=== PATIENT | female | born 1930 | race Caucasian/White ===

== ENCOUNTER → 2016-12-19 | Outpatient (CLI) | payer MEDICARE, OTHER ==
[~2016-12-19] MED LIST: CPR500T PO; HCT25T PO; LISI40TA PO; MULT-963 PO; NF-CIT200 PO
--- NOTE | 2016-12-19 14:40 | Diagnostic Imaging Report ---
EXAMINATION: Three views of the lumbar spine performed. INDICATION: Right lower extremity radiculopathy. FINDINGS: There is osteopenia. There is right convexity scoliosis centered around L3 level. The vertebral body heights appear to be preserved although evaluation is somewhat limited due to the scoliosis. There is suggestion of a grade 1 retrolisthesis of L1 over L2. There is significant disc height loss and vacuum phenomenon seen at multiple lumbar spine levels. No significant posterior osteophyte formation is appreciated. The SI joints demonstrate significant degenerative changes. IMPRESSION: Osteopenia. Advanced degenerative changes. Dictated by: Dictated on workstation # [id number]
== END ==
LOC: RAD 13:47
PROVIDERS: ATTEND Family Medicine
DX: M85.88 Other specified disorders of bone density and structure, other site (principal); M47.26 Other spondylosis with radiculopathy, lumbar region
CPT/HCPCS: 72100

== ENCOUNTER → 2020-03-04 | Outpatient (CLI) | payer MEDICARE, OTHER ==
--- NOTE | 2020-03-04 13:41 | Diagnostic Imaging Report ---
INDICATION: Dysuria and suprapubic pain. FINDINGS: The prevoid bladder volume is approximately 14 mL. The post void volume is 5 mL. No definite wall thickening or mass is detected. IMPRESSION: Nondistended urinary bladder. No wall thickening or mass is detected. Dictated by: Dictated on workstation # [id number]
== END ==
LOC: RAD 12:15
PROVIDERS: ATTEND Family Medicine
DX: R30.0 Dysuria (principal); R10.30 Lower abdominal pain, unspecified
CPT/HCPCS: 76857